=== PATIENT | male | born 1980 | race Caucasian/White ===

== ENCOUNTER 2018-07-23 18:23 | Emergency (ER) | payer OTHER ==
[~2018-07-23] VITALS: Ht 182.9 cm; Wt 95.3 kg
[2018-07-23 19:57] LABS: CLARITY,URINE SLIGHTLY CLOUDY; COLOR,URINE AMBER; GLUCOSE, URINE (UA) NEGATIVE (NEGATIVE); KETONES,URINE 4+ (NEGATIVE); LEUKOCYTE ESTERASE ,URINE 1+ (NEGATIVE); NITRITE,URINE POSITIVE (NEGATIVE); PH,URINE 5 (5-9); PROTEIN,URINE 3+ (NEGATIVE); UROBILINOGEN,URINE 4 MG/DL (NORMAL)
[2018-07-23 20:13] LABS: BILIRUBIN,URINE 1+ (NEGATIVE)
[2018-07-23 20:14] LABS: BACTERIA,URINE NEGATIVE /HPF; WBC,URINE 0-2 /HPF
[2018-07-23] MEDS ORDERED: KETOROLAC 30 MG/ML VIAL IVP STA (20:20)
--- NOTE | 2018-07-23 20:35 | NUR ---
dr villegas seeing pt.
[2018-07-23 20:39] LABS: BASOPHILS % (AUTO) 0 % (0-10); EOSINOPHILS # (AUTO) 0.1 10^3/uL (0.0-0.3); EOSINOPHILS % (AUTO) 0 % (0-10); HEMATOCRIT 42 % (40-54); HEMOGLOBIN 14.6 G/DL (13.3-17.7); LYMPHOCYTES # (AUTO) 1.1 X 10^3 (1.0-4.0); LYMPHOCYTES % (AUTO) 6 % (12-44); MEAN CORPUSCULAR HEMOGLOBIN 30 PG (25-34); MEAN CORPUSCULAR HGB CONC 35 G/DL (32-36); MEAN CORPUSCULAR VOLUME 86 FL (80-99); MEAN PLATELET VOLUME 9.4 FL (7.4-10.4); MONOCYTES # (AUTO) 1.9 X 10^3 (0.0-1.0); MONOCYTES % (AUTO) 11 % (0-12); NEUTROPHILS # (AUTO) 13.7 X 10^3 (1.8-7.8); NEUTROPHILS % (AUTO) 82 % (42-75); PLATELET COUNT 295 10^3/uL (130-400); RED CELL DISTRIBUTION WIDTH 12.8 % (10.0-14.5); WHITE BLOOD COUNT 16.8 10^3/uL (4.3-11.0)
[2018-07-23 20:51] LABS: BAND NEUTROPHILS 0 %; BASOPHILS % (MANUAL) 0 %; EOSINOPHILS % (MANUAL) 1 %; LYMPHOCYTES % (MANUAL) 7 %; MONOCYTES % (MANUAL) 5 %; NEUTROPHILS % (MANUAL) 81 %; RBC MORPH NORMAL; REACTIVE LYMPHOCYTES 6 %
[2018-07-23 21:02] LABS: ALANINE AMINOTRANSFERASE 96 U/L (0-55); ALBUMIN 4.4 GM/DL (3.2-4.5); ALKALINE PHOSPHATASE 154 U/L (40-136); BILIRUBIN,TOTAL 0.7 MG/DL (0.1-1.0); BUN/CREATININE RATIO 16; CARBON DIOXIDE 23 MMOL/L (21-32); CHLORIDE 101 MMOL/L (98-107); CREATININE SERUM 0.97 MG/DL (0.60-1.30); GFR ESTIMATED > 60; GLUCOSE 113 MG/DL (70-105); POTASSIUM 3.7 MMOL/L (3.6-5.0); SODIUM 139 MMOL/L (135-145); TOTAL PROTEIN 7.9 GM/DL (6.4-8.2)
--- NOTE | 2018-07-23 22:01 | Diagnostic Imaging Report ---
PROCEDURE: CT urinary tract, rule out kidney stone. TECHNIQUE: Multiple contiguous axial images were obtained through the abdomen and pelvis without the use of intravenous contrast. INDICATION: Swelling, groin pain. FINDINGS: The appendix is normal. There is no diverticulitis. The kidneys are unobstructed. No opaque urinary tract calculi. The liver, spleen, adrenals, pancreas and gallbladder are all unremarkable. There is no bowel obstruction. There is no pneumatosis or free gas. The unopacified urinary bladder is unremarkable. There is some likely reactive and inflammatory adenopathy in the bilateral groins on the right, measuring 2.3 cm and on the left measuring 2.2 cm. There is right greater than left adjacent subcutaneous and skin edema and thickening, suggestive of cellulitis. No abscess or drainable fluid collection. No soft tissue gas or evidence for necrosis. IMPRESSION: 1. Presumed reactive inflammatory adenopathy in the right greater the left groin with regional subcutaneous edema and presumed cellulitis. No extraperitoneal or intraperitoneal pelvic or abdominal inflammatory change. No drainable fluid collection, hernia or abscess. No soft tissue gas or foreign body. 2. Remaining abdominal pelvic solid and hollow viscera were unremarkable. Dictated on workstation # [id number]
[2018-07-23] MEDS ORDERED: cefTRIAXone FOR IV USE 2,000 MG in WATER (STERILE) FOR INJECTION 20 ML IV ONE (22:15)
[2018-07-23] MEDS ORDERED: AZITHROMYCIN 250 MG TAB (ZITHROMAX) PO ONE (22:15)
[2018-07-23] MEDS ORDERED: cefTRIAXone 1,000 MG IV (ROCEPHIN) VIAL ONE ×2 (22:20→22:31)
[2018-07-23] MEDS ORDERED: WATER (STERILE) FOR INJECTION 10 ML ONE ×2 (22:20→22:32)
--- NOTE | 2018-07-23 22:24 | ED General ---
General Chief Complaint: -Male Stated Complaint: RT SIDE GROIN PAIN Nursing Triage Note: bilateral groin pain, no injury. Nursing Sepsis Screen: No Definite Risk Allergies and Home Medications Allergies Coded Allergies: No Known Drug Allergies (Unverified , 07/23/18) Past Cudgxuk-Jeipzr-Thsiul Hx Patient Social History Alcohol Use: Denies Use Recreational Drug Use: No Smoking Status: Never a Smoker 2nd Hand Smoke Exposure: No Recent Foreign Travel: No Contact w/Someone Who Travel: No Recent Infectious Disease Expo: No Recent Hopitalizations: No Immunizations Up To Date Tetanus Booster (TDap): Unknown Seasonal Allergies Seasonal Allergies: Yes Past Medical History Surgeries: No Respiratory: No Cardiac: No Neurological: No Genitourinary: No Gastrointestinal: No Musculoskeletal: No Endocrine: No HEENT: No Cancer: No Psychosocial: No Integumentary: No Blood Disorders: No Adverse Reaction/Blood Tranf: No Physical Exam Vital Signs Vital Signs - First Documented 07/23/18 19:41 Temp 100.7 Pulse 100 Resp 20 B/P (MAP) 125/71 (89) Pulse Ox 100 O2 Delivery Room Air Capillary Refill : Less Than 3 Seconds Height, Weight, BMI Height: 6'0" Weight: 210lbs. oz. 95.771212bp; BMI Method:Stated Focused Exam Lactate Level 07/23/18 20:30: Lactic Acid Level 0.90 Lactic Acid Level Laboratory Tests Test 07/23/18 20:30 Lactic Acid Level 0.90 MMOL/L (0.50-2.00) Progress/Results/Core Measures Suspected Sepsis Recent Fever Within 48 Hours: No Infection Criteria Present: None New/Unexplained Altered Menta: No Sepsis Screen: No Definite Risk SIRS Temperature:100.7 Pulse: 100 Respiratory Rate: 20 Laboratory Tests 07/23/18 20:30: White Blood Count 16.8H Blood Pressure 125 /71 Mean: 89 07/23/18 20:30: Lactic Acid Level 0.90 Laboratory Tests 07/23/18 20:30: Creatinine 0.97, Platelet Count 295, Total Bilirubin 0.7 Results/Orders Lab Results Laboratory Tests Test 07/23/18 19:45 07/23/18 20:30 Range/Units Urine Color KARAN H Urine Clarity SLIGHTLY CLOUDY Urine pH 5 5-9 Urine Specific [place] 1.015 L 1.016-1.022 Urine Protein 3+ H NEGATIVE Urine Glucose (UA) NEGATIVE NEGATIVE Urine Ketones 4+ H NEGATIVE Urine Nitrite POSITIVE H NEGATIVE Urine Bilirubin 1+ H NEGATIVE Urine Urobilinogen 4 H NORMAL MG/DL Urine Leukocyte Esterase 1+ H NEGATIVE Urine RBC (Auto) 4+ H NEGATIVE Urine RBC 5-10 H /HPF Urine WBC 0-2 /HPF Urine Crystals NONE /LPF Urine Bacteria NEGATIVE /HPF Urine Casts NONE /LPF Urine Mucus LARGE H /LPF Urine Culture Indicated NO White Blood Count 16.8 H 4.3-11.0 10^3/uL Red Blood Count 4.90 4.35-5.85 10^6/uL Hemoglobin 14.6 13.3-17.7 G/DL Hematocrit 42 40-54 % Mean Corpuscular Volume 86 80-99 FL Mean Corpuscular Hemoglobin 30 25-34 PG Mean Corpuscular Hemoglobin Concent 35 32-36 G/DL Red Cell Distribution Width 12.8 10.0-14.5 % Platelet Count 295 130-400 10^3/uL Mean Platelet Volume 9.4 7.4-10.4 FL Neutrophils (%) (Auto) 82 H 42-75 % Lymphocytes (%) (Auto) 6 L 12-44 % Monocytes (%) (Auto) 11 0-12 % Eosinophils (%) (Auto) 0 0-10 % Basophils (%) (Auto) 0 0-10 % Neutrophils # (Auto) 13.7 H 1.8-7.8 X 10^3 Lymphocytes # (Auto) 1.1 1.0-4.0 X 10^3 Monocytes # (Auto) 1.9 H 0.0-1.0 X 10^3 Eosinophils # (Auto) 0.1 0.0-0.3 10^3/uL Basophils # (Auto) 0.0 0.0-0.1 10^3/uL Neutrophils % (Manual) 81 % Lymphocytes % (Manual) 7 % Monocytes % (Manual) 5 % Eosinophils % (Manual) 1 % Basophils % (Manual) 0 % Band Neutrophils 0 % Reactive Lymphocytes 6 % Blood Morphology Comment NORMAL Sodium Level 139 135-145 MMOL/L Potassium Level 3.7 3.6-5.0 MMOL/L Chloride Level 101 98-107 MMOL/L Carbon Dioxide Level 23 21-32 MMOL/L Anion Gap 15 H 5-14 MMOL/L Blood Urea Nitrogen 16 7-18 MG/DL Creatinine 0.97 0.60-1.30 MG/DL Estimat Glomerular Filtration Rate > 60 BUN/Creatinine Ratio 16 Glucose Level 113 H 70-105 MG/DL Lactic Acid Level 0.90 0.50-2.00 MMOL/L Calcium Level 10.0 8.5-10.1 MG/DL Corrected Calcium 9.7 8.5-10.1 MG/DL Total Bilirubin 0.7 0.1-1.0 MG/DL Aspartate Amino Transf (AST/SGOT) 64 H 5-34 U/L Alanine Aminotransferase (ALT/SGPT) 96 H 0-55 U/L Alkaline Phosphatase 154 H 40-136 U/L Total Protein 7.9 6.4-8.2 GM/DL Albumin 4.4 3.2-4.5 GM/DL Monoscreen NEGATIVE NEGATIVE Micro Results Microbiology 07/23/18 Influenza Types A,B Antigen (SKYLA) - Final, Complete My Orders Orders - NAE DAVENPORT DO Ua Culture If Indicated (07/23/18 19:48) Saline Lock/Iv-Start (07/23/18 20:20) Ct Abd/Pelvis Wo(Kidney Stone) (07/23/18 20:20) Cbc With Automated Diff (07/23/18 20:20) Comprehensive Metabolic Panel (07/23/18 20:20) Abdomen, Flat & Upright/Decub (07/23/18 20:20) Ketorolac Injection (Toradol Injection) (07/23/18 20:20) Lactic Acid Analyzer (07/23/18 20:23) Monotest (07/23/18 20:23) Blood Culture (07/23/18 20:23) Chlamydia Trachomatis Urine (07/23/18 20:25) Neis Lizanrdo Dna Urine Test (07/23/18 20:25) Manual Differential (07/23/18 20:30) Influenza A And B Antigens (07/23/18 20:41) Ceftriaxone For Iv Use (Rocephin For I (07/23/18 22:15) Azithromycin Tablet (Zithromax Tablet) (07/23/18 22:15) Vital Signs/I&O 07/23/18 07/23/18 19:41 20:28 Temp 100.7 100.7 Pulse 100 Resp 20 B/P (MAP) 125/71 (89) Pulse Ox 100 O2 Delivery Room Air Capillary Refill : Less Than 3 Seconds Blood Pressure Mean: 89 Departure Impression Primary Impression: Urinary tract infection Additional Impressions: Inguinal lymphadenopathy Elevated liver enzymes Condition: Stable Departure-Patient Inst. Referrals: NO,LOCAL PHYSICIAN (PCP) Primary Care Physician IFRAH PRYOR DO Patient Instructions: LYMPH NODE INFECTION, LYMPH NODE SWELLING, Liver Function Test, Urinary Tract Infection, Adult (DC) Add. Discharge Instructions: LOTS OF CLEAR LIQUIDS TYLENOL 1 GRAM/ MOTRIN 800 GM 4 TIMES A DAY NEEDED FOR PAIN OR FEVER KEEP YOUR APPOINTMENT WITH DR. PRYOR ON FRIDAY, RETURN TO ER IF WORSE All discharge instructions reviewed with patient and/or family. Voiced understanding. Scripts Tramadol HCl (Ultram) 50 Mg Tablet 50 MG PO Q4H, #20 TAB Prov: NAE DAVENPORT DO 07/23/18 Metronidazole (Flagyl) 500 Mg Tablet 500 MG PO QID for FOR INFECTION, #40 TAB Prov: NAE DAVENPORT DO 07/23/18 Ciprofloxacin HCl (Cipro) 500 Mg Tablet 500 MG PO BID, #20 TAB Prov: NAE DAVENPORT DO 07/23/18 NAE DAVENPORT DO Jul 23, 2018 22:24
[2018-07-23] MEDS ORDERED: METR500T PO (22:27)
[2018-07-23] MEDS ORDERED: CIPR-225 PO (22:27)
[2018-07-23] MEDS ORDERED: TRAM-42 PO (22:27)
[2018-07-23] MEDS ORDERED: RX-TRAMADOL 50 MG (ULTRAM) TAB PPK#4 PO STA (22:27)
[2018-07-23] MEDS ORDERED: RX-TRAMADOL 50 MG (ULTRAM) TAB PPK#4 PO ONE (22:28)
[2018-07-23 22:40] VITALS: BP 133/85
--- NOTE | 2018-07-24 06:55 | Diagnostic Imaging Report ---
INDICATION: Abdominal pain and distention. Supine and upright views of the abdomen reveal diffuse gaseous distention of the colon with lesser distention of small bowel loops. There is no transition point seen to indicate an obstruction. No free intraperitoneal gas or pneumatosis is identified. There is no evidence of pathologic abdominal calcification. IMPRESSION: Colonic distention may reflect ileus. If warranted, contrast enema may be of value for assessment. Dictated by: Dictated on workstation # [id number]
== END 2018-07-23 22:42 | disposition home or self-care (01) ==
LOC: ER 18:25
DX: N39.0 Urinary tract infection, site not specified (principal); R59.0 Localized enlarged lymph nodes; R94.5 Abnormal results of liver function studies
CPT/HCPCS: 36415; 74019; 74176; 80053; 81000; 83605; 85007; 85027; 86308; 86618; 86666; 86668; 86757; 87040; 87491; 87591; 87804

== ENCOUNTER → 2018-10-26 | Outpatient (CLI) | payer OTHER ==
[~2018-10-26] MED LIST: CIPR-225 PO; METR500T PO; TRAM-42 PO
--- NOTE | 2018-10-26 10:46 | Diagnostic Imaging Report ---
Clinical indication: Patient with elevated liver enzymes. Exam: Right upper quadrant ultrasound. Comparison: CT scan of abdomen and pelvis without contrast dated 07/23/2018. Findings: There is diffuse hyperechogenicity seen throughout the liver. Liver is mildly enlarged measuring 17.7 cm in craniocaudal dimension. There is no intrahepatic or extrahepatic ductal dilation. The common bile that measures 3 mm. The main portal vein demonstrates hepatopetal flow. The liver surface is smooth. There is a small amount of sludge within the gallbladder. There are no stones seen. The gallbladder wall has normal thickness. There is no pericholecystic fluid and no sonographic Alexandra sign. The right kidney has normal echogenicity, size, shape with no mass or hydronephrosis seen. Right kidney measures 12.9 cm in craniocaudal dimension. Pancreas is unable to be visualized on this exam due to bowel gas. Portions of the distal abdominal aorta are obscured by overlying bowel gas. Otherwise visualized portion of the lumbar aorta and IVC show no significant abnormality. There is no abdominal ascites. Impression: 1: There is no ultrasound evidence of acute abdominal process. 2: There is mild hepatomegaly and diffuse hyperechogenicity seen throughout the liver which may be related to diffuse fatty infiltration or chronic hepatocellular disease. 3: Incomplete visualization of the pancreas. If there is clinical concern for pancreatic abnormality, serology tests or CT scan may better evaluate. 4: There is gallbladder sludge. There are no stones seen. There is no ultrasound evidence of cholecystitis. Dictated by: Dictated on workstation # [id number]
== END ==
LOC: RAD 07:53
PROVIDERS: ATTEND Family Medicine
DX: K82.8 Other specified diseases of gallbladder (principal); R16.0 Hepatomegaly, not elsewhere classified
CPT/HCPCS: 76705